=== PATIENT | male | born 1965 ===

== ENCOUNTER 2021-07-26 15:26 | Observation (INO) ==
[~2021-07-26 15:26] MED LIST: Albuterol HFA INHALER 8 gm MDI INH PRN; BUPIVACAINE **LIPOSOME/PF 13.3 MG/ML (266MG/ 20ML) VIAL (RESTRICTED) INFIL ONE; Buffered Lidocaine 1% SYRIN 1 ml INTRADERM ONE; Bupivacaine 0.25% SDV 30 ML ONE; Dexamethasone IV 4 MG/ML VIAL 1 ml VIAL ONE; HYDROmorphone 1 MG/1 ML SYRINGE ONE; Ketamine HCL 50 mg/ml 10 ml VIAL (500 MG) ONE; Lactated Ringers 1000 ml BAG 1,000 ML IV SCH; Lactulose 30 ml UDC PO PRN; Lidocaine 2% PF 5 ML VIAL ONE; Magnesium Hydroxide LIQ 30 ML UDC PO PRN; Midazolam 2 mg/2 ml VIAL 1 mg/ml 2 ml VIAL (2 mg) ONE; Morphine 2 MG/ML SYRINGE IV PRN; Naloxone 0.4 mg VIAL 0.4 mg/ml 1 ml VIAL IV PRN; Ondansetron 4 mg VIAL 2 MG/ML 2 ml VIAL IV PRN; Ondansetron 4 mg VIAL 2 MG/ML 2 ml VIAL ONE; Ondansetron ODT 4 mg TAB 4 MG TAB PO PRN; Propofol 10 MG/ML 20 ML BTL ONE; ROPIVACAINE 5 MG/ML 30 ML BTL (0.5%) ONE; Rocuronium 50 mg VIAL 10 mg/ml 5 ml VIAL (50 mg) ONE; ceFAZolin 2 GM in NS PREMIX 2 GM/100 ML BAG IVPB ONE; diPHENhydraMINE 25 mg TAB PO PRN; diPHENhydraMINE IV 50 MG/ML 1 ml VIAL (BENADRYL) IV PRN; fentaNYL 100 mcg/2 ml 50 MCG/ML VIAL ONE
[2021-07-26] MEDS: HYDROmorphone 1 MG/1 ML SYRINGE IV PRN ×2 (15:30→15:40)
[2021-07-26] MEDS ORDERED: Labetalol IV 5 MG/ML 20 ml VIAL ONE (15:53)
[2021-07-26] MEDS ORDERED: Labetalol IV 5 MG/ML 20 ml VIAL IV PUSH PRN (16:02)
[2021-07-26] MEDS ORDERED: hydrALAZINE 20 mg/ml 1 ML Vial IV IV SLOW PU PRN (16:25)
[2021-07-26] MEDS ORDERED: hydrALAZINE 20 mg/ml 1 ML Vial IV ONE (16:28)
[2021-07-26] MEDS: Lactated Ringers 1000 ml BAG 1,000 ML IV SCH (17:13)
[2021-07-26] MEDS ORDERED: TOPIRAMATE 200 MG PO SCH (18:00)
[2021-07-26] MEDS: BUDESONIDE INH SCH (20:15)
[2021-07-26] MEDS: FORMOTEROL INH SCH (20:15)
[2021-07-26] MEDS: Magnesium Hydroxide LIQ 30 ML UDC PO SCH (20:43)
[2021-07-26] MEDS: ceFAZolin 1 GM ADVAN 1 GM in NS 0.9% 50 ML 50 ML IVPB SCH (20:43)
[2021-07-26] MEDS: Gemfibrozil 600 mg PO SCH (21:12)
[2021-07-27] MEDS: ceFAZolin 1 GM ADVAN 1 GM in NS 0.9% 50 ML 50 ML IVPB SCH ×2 (03:52→12:38)
[2021-07-27] MEDS: Lactated Ringers 1000 ml BAG 1,000 ML IV SCH (03:53)
[2021-07-27 06:10] LABS: Hematocrit 39 % (42-52); Hemoglobin 13.2 g/dL (14.0-18.0); Mean Platelet Volume 7.7 fL (7.4-10.4); Platelet Count 244 10^3/uL (150-450)
[2021-07-27 06:25] LABS: Calcium 8.6 mg/dL (8.6-10.3); Potassium 3.8 mmol/L (3.5-5.0)
[2021-07-27] MEDS ORDERED: TOPIRAMATE 50 MG PO SCH (09:00)
[2021-07-27] MEDS ORDERED: Vitamin THERAPEUTIC TAB PO SCH (09:00)
[2021-07-27] MEDS: Gemfibrozil 600 mg PO SCH (09:04)
[2021-07-27] MEDS: FORMOTEROL INH SCH (09:05)
[2021-07-27] MEDS: BUDESONIDE INH SCH (09:05)
[2021-07-27] MEDS: Magnesium Hydroxide LIQ 30 ML UDC PO SCH (09:05)
[2021-07-27 11:58] VITALS: BP 134/80
== END 2021-07-27 15:00 | disposition home or self-care (01) ==
LOC: SSU 15:26 → OR 15:26
PROVIDERS: ADMIT Orthopaedic Surgery Sports Medicine; ATTEND Orthopaedic Surgery Sports Medicine